=== PATIENT | female | born 2000 | race Caucasian/White ===

== ENCOUNTER 2024-04-04 20:10 | Emergency (ER) | payer MEDICAID, SELFPAY ==
[2024-04-04 20:11] VITALS: BP 155/96; PULSE 98; RESP 16; TEMP 36.6; O2SAT 98; BMI 41.1
--- NOTE | 2024-04-04 21:58 | EDS_ITS ---
HPI History of Present Illness Chief Complaint: General Illness Informant: patient Onset/Context/Timing Onset: Today Context: Gradual Onset Timing: Continuous Quality: Lightheaded Location: Generalized Worsened by: Laying down, moving Relieved by: Nothing Narrative Narrative: Patient presents because she felt like she was overheated today. Patient states she has been feeling dizzy and lightheaded. Patient states she was giving a lot of 2 worse at work today and was doing a lot of walking. Patient states her symptoms are worse with laying down and moving. Patient states nothing seems to help with her symptoms. Patient states that they have gradually gotten worse throughout the day today. Patient denies any fevers or chills. Patient admits to some blurry vision. Patient states she did have some nausea and an episode of vomiting. Patient denies any hematemesis or coffee-ground emesis. Patient does admit to a mild headache. [facility] Medical History Depression Anxiety Physical exam, pre-employment Home Medications ?Medication ?Instructions ?Recorded ?Last Taken ?Type sertraline 100 mg tablet 100 mg PO BID PRN only when on her 04/04/24 Unknown History period sertraline 50 mg tablet 50 mg PO DAILY 04/04/24 Unknown History Allergy/AdvReac Type Severity Reaction Status Date / Time No Known Allergies Allergy Verified 04/04/24 20:13 Surgical History no surgical history no surgical history Social History Smoking Status: Never smoker ROS ROS ED Constitutional Constitutional ED: Denies chills or fever(s) Eyes Eyes: Reports blurry vision; Denies diplopia ENT ENT ED: Denies rhinorrhea or sore throat Cardiovascular Cardiovascular: Denies chest pain or palpitations Respiratory/Chest Respiratory/Chest: Denies cough or dyspnea Gastrointestinal Gastrointestinal: Reports nausea and vomiting Genitourinary Genitourinary ED: Denies dysuria or hematuria Musculoskeletal Musculoskeletal: Reports neck pain; Denies back pain Integumentary Denies abscess or rash Neurologic Neurologic: Reports headache(s); Denies weakness Allergic/Immunologic Allergic/Immunologic ED: Denies mouth swelling or urticaria EXAM Physical Exam Const Vital Signs: 04/04/24 20:11 04/04/24 20:37 04/04/24 22:12 Temperature 97.8 F Temperature Source Temporal Pulse Rate 98 88 Respiratory Rate 16 15 Respiratory Effort Normal Non-Labored Respiratory Pattern Normal Blood Pressure 155/96 H 130/87 H Blood Pressure Mean 115 101 Pulse Ox 98 98 Oxygen Delivery Method Room Air Room Air Positive well nourished and well developed General Appearance ED: well developed and NAD HEENT Reports moist mucous membranes Neck supple and no JVD Resp normal respiratory effort and clear to auscultation bilaterally Cardio regular rate and regular rhythm GI non-tender and non-distended Palpation: soft Extremity normal to inspection Neuro oriented x3, CN's II-XII intact bilaterally and no sensory deficits noted Sensorium / Orientation: alert Motor Exam: strength 5/5 throughout Psych mental status grossly normal MDM MDM MDM Narrative Medical decision making narrative: Differential diagnosis includes dehydration, electrolyte abnormality, ectopic , and anxiety. CBC will be obtained to assess for leukocytosis and anemia. Basic metabolic profile will be obtained to assess for electrolyte abnormality and renal function. Serum hCG will be obtained to assess for . Lab Data Attestation: I reviewed the patient's lab results. Lab results narrative: CBC was reviewed and was within normal limits. Basic metabolic profile was reviewed and was essentially within normal limits. Serum hCG was reviewed and was negative. Labs: Laboratory Results - last 24 hr 04/04/24 20:48 WBC 5.6 RBC 4.60 Hgb 12.7 Hct 38.0 MCV 82.6 MCH 27.6 MCHC 33.4 RDW Std Deviation 38.4 RDW Coeff of Francisco Javier 12.7 Plt Count 299 MPV 10.8 Immature Gran % (Auto) 0.400 Neut % (Auto) 54.9 Lymph % (Auto) 33.9 [place] % (Auto) 6.2 Eos % (Auto) 3.7 Baso % (Auto) 0.9 Absolute Neuts (auto) 3.1 Absolute Lymphs (auto) 1.91 Nucleated RBC % 0 Sodium 140 Potassium 3.6 Chloride 108 H Carbon Dioxide 25.0 Anion Gap 7 BUN 10 Creatinine 0.76 Estim Creat Clear Calc 126.68 Est GFR (MDRD) Af Amer 119 Est GFR (MDRD) Non-Af 98 BUN/Creatinine Ratio 13.1 Glucose 91 Calcium 9.1 Serum , Qual NEGATIVE Treatment and Re-Evaluation :: Patient was given IV fluids. Patient was feeling better on reevaluation. Patient was advised of her findings. Patient was instructed to drink plenty of fluids. Patient was instructed to follow-up with her primary care physician in 5 to 7 days. Patient understood and was agreeable with the plan. All questions were answered. Discharge Plan Triage Chief Complaint: General Illness ED Provider: Cleve Cardenas Dx/Rx/DC Orders Clinical Impression: Dizziness, BMI 40.0-44.9, adult Instructions: ED Dizziness, Uncertain Cause Prescriptions: No Action sertraline 100 mg tablet 100 mg PO BID PRN (Reason: only when on her period) sertraline 50 mg tablet 50 mg PO DAILY Patient Comments: when not on period Primary Care Provider: Care Physician,No Primary Referrals: Maira Redd DO [Med Staff - Active Staff] - 5-7 Days Care Physician,No Primary [Primary Care Provider] - Print Language: Korean Disposition Disposition: Home, Self Care
[2024-04-04 22:05] LABS: Absolute Lymphocyte Count 1.91 X10^3/uL (0.83-4.51); Absolute Neutrophil Count 3.1 X10^3/uL (2.0-7.7); Basophil# 0.05 X10^3/uL; Basophil% 0.9 % (0-1); Eosinophil# 0.21 X10^3/uL; Eosinophils% 3.7 % (0-5); Hemoglobin 12.7 g/dL (12.0-15.0); Lymphocyte # 1.91 X10^3/ul (0.83-4.51); Lymphocyte % 33.9 % (19-41); Mean Corp Hgb Conc 33.4 g/dL (32-36); Mean Corpuscular Hgb 27.6 pg (27.0-32.0); Mean Corpuscular Volume 82.6 fL (81-99); Mean Platelet Vol. 10.8 fl (6.2-12.0); Monocyte# 0.35 X10^3/uL; Monocyte% 6.2 % (0-10); NRBC Flagged by Analyzer 0 % (0-5); Neutrophil % 54.9 % (47-70); Platelet Count 299 K/mm3 (150-450); RBC Distribution Width CV 12.7 % (11.6-14.6); RBC Distribution Width SD 38.4 fl (35.1-43.9); White Blood Count 5.6 K/mm3 (4.4-11.0)
[2024-04-04 22:12] VITALS: BP 130/87; PULSE 88; RESP 15; O2SAT 98
[2024-04-04] MEDS: 0.9% Normal Saline (1000mL) 1,000 ML 1000 ML IV (22:12)
[2024-04-04 22:29] LABS: Anion Gap 7 (5-15); BUN 10 mg/dL (7-18); BUN/Creat Ratio 13.1 RATIO (10-20); Calcium,Total 9.1 mg/dL (8.5-10.1); Chloride 108 mmol/L (98-107); Creatinine, Serum 0.76 mg/dL (0.55-1.02); EST Glomerular Filtration Rate 98 mL/min (>60); Est Glom Filt Rate - Afr Amer 119 mL/min (>60); Estimated Creatinine Clearance 126.68 ml/min; Glucose 91 mg/dL (74-106); Potassium 3.6 mmol/L (3.5-5.1); Sodium Level 140 mmol/L (136-145)
[2024-04-04 22:54] LABS: Internal QC Validated? YES +Cl - CLEAR BKGD; Pregnancy, Serum, hCG Quali. NEGATIVE Negative; Record Kit Lot#, Serum Preg. 772476
== END 2024-04-04 23:41 | disposition home or self-care (01) ==
PROVIDERS: Emergency Provider Emergency Medicine; Visit Provider Emergency Medicine
DX: R42 Dizziness and giddiness (principal); R51.9 Headache, unspecified; H53.8 Other visual disturbances; R11.2 Nausea with vomiting, unspecified; F32.A Depression, unspecified; F41.9 Anxiety disorder, unspecified; Z79.899 Other long term (current) drug therapy
CPT/HCPCS: 80048; 84703; 85025; 96360; 99283; J7030; A4216